=== PATIENT | female | born 1945 | race Caucasian/White ===

== ENCOUNTER 2024-11-13 12:48 | Day surgery (SDC) | payer MEDICARE, OTHER ==
[2024-11-13] MEDS: Lactated Ringers 1,000 ML IV SCH (13:02)
[2024-11-13] MEDS ORDERED: Lactated Ringers 1,000 ML IV ONE (13:03)
[2024-11-13 13:12] VITALS: RESP 16
[2024-11-13] MEDS: TETRACAINE 0.5% STERI-UNIT SOL OP ONE ×2 (13:17→13:31)
[2024-11-13] MEDS: Ak-Dilate OPHTHALMIC*** 0.71 ML, Cyclogyl 1% OPHTH SOL 0.71 ML, GATIFLOXACIN 0.5% OPHTH... OP SCH (13:18)
[2024-11-13 13:34] LABS: Calcium 9.5 mg/dL (8.4-10.2); Carbon Dioxide 23.0 mmol/L (22-30); Creatinine 1 1.09 mg/dL (0.52-1.04); EST GLOMERULAR FILTRATION RATE 52.0 ML/MIN; Glucose 91.0 mg/dL (74-106); Potassium 3.8 mmol/L (3.5-5.1)
[2024-11-13] MEDS ORDERED: TRIAMCINOLONE 15 MG/ML INJ INTRAOP NR (14:00)
[2024-11-13] MEDS ORDERED: DEXMEDETOMIDINE 80 MCG/20ML-NS IV NR (14:00)
[2024-11-13] MEDS ORDERED: BETADINE 5% OPHTHALMIC 30 ML OP NR (14:00)
[2024-11-13] MEDS ORDERED: VIGAMOX/BSS 0.15% SYR IO NR (14:00)
[2024-11-13] MEDS ORDERED: Zofran 4 MG/2 ML VIAL IV PRN (14:00)
[2024-11-13] MEDS ORDERED: OMIDRIA 1-0.3% VIAL IO NR (14:00)
[2024-11-13] MEDS ORDERED: DEXTENZA OP NR (14:00)
[2024-11-13] MEDS ORDERED: propofoL IV ONE ×2 (15:05→15:16)
[2024-11-13 15:40] VITALS: PULSE 70
[2024-11-13 15:44] VITALS: BP 95/65; TEMP 97.5; O2SAT 95
== END 2024-11-13 15:54 | disposition home or self-care (01) ==
LOC: SDC 12:48
PROVIDERS: ATTEND Ophthalmology
DX: H25.812 Combined forms of age-related cataract, left eye (principal); I10 Essential (primary) hypertension